=== PATIENT | female | born 1965 | race Caucasian/White ===

== ENCOUNTER 2016-10-13 22:11 | Observation (INO) | payer BC ==
[~2016-10-13] VITALS: Ht 157.5 cm; Wt 58.8 kg
[~2016-10-13 22:11] MED LIST: AMLO2.5T PO; AMLO5TAB2 PO; ATEN25TA PO; BENZ100C4 PO; BUSP10TA PO; BUSP15TA PO; BUTA-5 PO; CHLO25CA9 PO; FLUD0.1T PO; FLUO20CA8 PO; FLUO40CA2 PO; FLUO40CA9 PO; FOLI-17 PO; GUAI10LI PO; LORA-445 PO; METO1TAB6 PO; MULT-484 PO; ONDA4TAB7 PO; QUET100T4 PO; QUET25TA PO; QUET50TA5 PO; THIA100T6 PO; THYR60TA PO; THYR90TA PO; TRAM50TA2 PO
[2016-10-13 23:18] LABS: ASPARTATE AMINO TRANSFERASE 70 U/L (15-37); BLOOD UREA NITROGEN 26 mg/dL (7-18)
[2016-10-13 23:25] LABS: ACETAMINOPHEN < 2 mcg/mL (10-30)
[2016-10-14] MEDS ORDERED: ONDANSETRON ODT 4 MG ONE (00:26)
[2016-10-14] MEDS ORDERED: ONDANSETRON ODT 8 MG PO ONE (00:30)
[2016-10-14] MEDS ORDERED: LORazepam 1MG TABLET ONE (02:15)
[2016-10-14] MEDS ORDERED: LORazepam 1MG TABLET PO ONE (02:30)
[2016-10-14] MEDS ORDERED: ZIPRASIDONE 20 MG INJ IM PRN (03:30)
[2016-10-14] MEDS ORDERED: ACETAMINOPHEN 325 MG TABLET PO PRN (03:30)
[2016-10-14] MEDS ORDERED: ONDANSETRON ODT 4 MG PO PRN (03:30)
[2016-10-14] MEDS ORDERED: LORazepam 1MG TABLET PO PRN (03:30)
[2016-10-14] MEDS ORDERED: HALOPERIDOL 5 MG TABLET PO PRN (03:30)
[2016-10-14 03:47] LABS: DAU SCREEN DISCLAIMER
[2016-10-14 03:53] LABS: PATH.CAST-FLAG NOT PRESENT; SPERM-FLAG NOT PRESENT; SRC-FLAG NOT PRESENT; XTAL-FLAG NOT PRESENT; YLC-FLAG NOT PRESENT
[2016-10-14 04:12] VITALS: BP 148/83
[2016-10-14] MEDS ORDERED: DIPHENHYDRAMINE 25 MG CAPSULE PO PRN (08:00)
[2016-10-14 08:03] VITALS: BP 116/72
[2016-10-14] MEDS ORDERED: MULTIVITAMINS/MINERALS TABLET PO SCH (09:00)
[2016-10-14] MEDS ORDERED: FOLIC ACID 1 MG TABLET PO SCH (09:00)
[2016-10-14] MEDS ORDERED: BUSPIRONE 10 MG TABLET PO SCH (09:00)
[2016-10-14] MEDS ORDERED: THIAMINE 100MG TABLET PO SCH (09:00)
[2016-10-14] MEDS ORDERED: FLUOXETINE 20 MG CAPSULE PO SCH (09:00)
[2016-10-14] MEDS ORDERED: QUETIAPINE 25MG TABLET PO SCH (21:00)
[2016-10-15] MEDS ORDERED: FLUOXETINE 20 MG CAPSULE PO SCH (09:00)
== END 2016-10-14 15:17 ==
LOC: ED 10-14 02:42 → EDIP 10-14 03:15 → 3E 10-14 04:10
PROVIDERS: ADMIT Hospitalist; ATTEND Hospitalist
DX: R45.851 Suicidal ideations (principal); F10.10 Alcohol abuse, uncomplicated; I10 Essential (primary) hypertension; F32.9 Major depressive disorder, single episode, unspecified; F41.9 Anxiety disorder, unspecified; E03.9 Hypothyroidism, unspecified; Z91.14 Patient's other noncompliance with medication regimen
CPT/HCPCS: 36415; 80053; 80307; 80329; 81001; 84439; 84443; 85025; 99285; G0378; Q0162; Q0163; G0480

== ENCOUNTER 2017-01-25 08:53 | Day surgery (SDC) | payer BC ==
[2017-01-22 14:47] LABS: ASPARTATE AMINO TRANSFERASE 13 U/L (15-37); BLOOD UREA NITROGEN 10 mg/dL (7-18)
[~2017-01-25] VITALS: Ht 157.5 cm; Wt 58.7 kg
[~2017-01-25 08:53] MED LIST changes: +BENZ100C17 PO; -BENZ100C4 PO; +BUPIVACAINE/PF 0.5% ONE; +BUSP5TAB2 PO; +GABA300C10 PO; +HYDR12.58 PO; +METO25TA35 PO; +QUET25TA5 PO
[2017-01-25 09:19] VITALS: BP 134/87
[2017-01-25] MEDS ORDERED: LACTATED RINGERS 1,000 ML IV SCH (09:32)
[2017-01-25] MEDS ORDERED: MIDAZOLAM 1 MG/ML, 2ML ONE (10:14)
[2017-01-25] MEDS ORDERED: FENTANYL PF 100 MCG/2ML ONE ×2 (10:14→12:35)
[2017-01-25] MEDS ORDERED: ROCURONIUM 10 MG/ML ONE (10:46)
[2017-01-25] MEDS ORDERED: EPHEDRINE 50 MG/ML, 1ML ONE (10:46)
[2017-01-25] MEDS ORDERED: PROPOFOL 10 MG/ML, 20ML ONE (10:46)
[2017-01-25] MEDS ORDERED: DEXAMETHASONE 4 MG/ML, 5ML ONE (10:46)
[2017-01-25] MEDS ORDERED: SUCCINYLCHOLINE 20 MG/ML, 10ML ONE (10:46)
[2017-01-25] MEDS ORDERED: CEFAZOLIN 1,000 MG ONE (10:46)
[2017-01-25] MEDS ORDERED: FENTANYL PF 100 MCG/2ML IV PRN (11:30)
[2017-01-25] MEDS ORDERED: LABETALOL 5MG/ML, 20ML IV PRN (11:30)
[2017-01-25] MEDS ORDERED: hydrALAzine 20 MG/ML, 1ML IV PRN (11:30)
[2017-01-25] MEDS ORDERED: ACETAMINOPHEN 325 MG TABLET PO PRN (11:30)
[2017-01-25] MEDS ORDERED: HYDROmorphone 1 MG/ML, 1ML IV PRN (11:30)
[2017-01-25] MEDS ORDERED: ONDANSETRON 2MG/ML, 2ML IVPush PRN (11:30)
[2017-01-25] MEDS ORDERED: OXYcodone 5 MG/5 ML ORAL.SOL UDC PO PRN (11:30)
[2017-01-25] MEDS ORDERED: MEPERIDINE/PF 25MG/0.5ML IVPush PRN (11:30)
[2017-01-25] MEDS ORDERED: MIDAZOLAM 1 MG/ML, 2ML IV PRN (11:30)
[2017-01-25] MEDS ORDERED: ALBUTEROL/IPRATROPIUM 2.5MG/0.5MG, 3 ML NPPB PRN (11:30)
[2017-01-25] MEDS ORDERED: OXYcodone 5 MG/5 ML ORAL.SOL UDC ONE (13:40)
[2017-01-25] MEDS ORDERED: ONDANSETRON 2MG/ML, 2ML ONE (13:40)
[2017-01-25] MEDS ORDERED: ACETAMINOPHEN 650 MG/20.3 ML UDC ONE (13:40)
== END 2017-01-25 16:45 ==
LOC: OUT 08:53
PROVIDERS: ATTEND Orthopaedic Surgery
DX: S82.831K Other fracture of upper and lower end of right fibula, subsequent encounter for closed fracture with nonunion (principal); M24.671 Ankylosis, right ankle; M25.371 Other instability, right ankle; M77.41 Metatarsalgia, right foot; J45.909 Unspecified asthma, uncomplicated; X58.XXXD Exposure to other specified factors, subsequent encounter; Z88.8 Allergy status to other drugs, medicaments and biological substances; Z90.49 Acquired absence of other specified parts of digestive tract; Z98.890 Other specified postprocedural states; Z86.39 Personal history of other endocrine, nutritional and metabolic disease
CPT/HCPCS: 27726; 27792; 28308; 29898; 36415; 73600; 76000; 80053; 81003; 87086; C1713; J0330; J0690; J1100; J2250; J2405; J2704; J3010; J3490; J7120

== ENCOUNTER 2017-02-12 17:09 | Emergency (ER) | payer BC ==
[~2017-02-12] VITALS: Ht 160 cm; Wt 57.0 kg
[~2017-02-12 17:09] MED LIST changes: -BUPIVACAINE/PF 0.5% ONE
[2017-02-12 17:42] LABS: HEMATOCRIT 37.3 % (34.6-47.8); HEMOGLOBIN 12.5 g/dL (11.7-16.4); WHITE BLOOD COUNT 4.6 x10^3/uL (3.4-10)
[2017-02-12 17:55] LABS: BLOOD UREA NITROGEN 21 mg/dL (7-18)
[2017-02-12 17:56] LABS: ACETAMINOPHEN < 2 mcg/mL (10-30)
[2017-02-12 21:39] VITALS: BP 96/71
== END 2017-02-12 21:48 | disposition home or self-care (01) ==
LOC: ED 20:48
DX: F41.1 Generalized anxiety disorder (principal); F10.120 Alcohol abuse with intoxication, uncomplicated; M79.671 Pain in right foot; Z98.890 Other specified postprocedural states; Z00.00 Encounter for general adult medical examination without abnormal findings
CPT/HCPCS: 36415; 80048; 80307; 80329; 82040; 85025; 99284; G0480

== ENCOUNTER 2017-02-14 17:58 | Inpatient (IN) | payer BC ==
[~2017-02-14] VITALS: Ht 157.5 cm; Wt 75.8 kg
[2017-02-14 18:17] LABS: HEMATOCRIT 39.3 % (34.6-47.8); HEMOGLOBIN 12.9 g/dL (11.7-16.4); WHITE BLOOD COUNT 5.8 x10^3/uL (3.4-10)
[2017-02-14] MEDS ORDERED: OXYC-302 PO (18:22)
[2017-02-14 18:26] LABS: BLOOD UREA NITROGEN 25 mg/dL (7-18)
[2017-02-14 18:29] LABS: ACETAMINOPHEN 140 mcg/mL (10-30); ASPARTATE AMINO TRANSFERASE 149 U/L (15-37)
[2017-02-14] MEDS ORDERED: DEXTROSE 5% IV ONE ×3 (18:30→20:00)
[2017-02-14] MEDS ORDERED: ACETYLCYSTEINE IV ONE ×3 (18:30→20:00)
[2017-02-14] MEDS ORDERED: NALOXONE 0.4 MG/ML, 1ML IVPush PRN (18:30)
[2017-02-14] MEDS ORDERED: SODIUM CHLORIDE 0.9% 1,000ML IVBOLUS ONE ×2 (18:30→20:30)
[2017-02-14] MEDS: PLEASE ENTER HEIGHT AND WEIGHT MC SCH ×2 (18:30→19:56)
[2017-02-14] MEDS ORDERED: NALOXONE 0.4 MG/ML, 1ML ONE (18:30)
[2017-02-14] MEDS ORDERED: ONDANSETRON 2MG/ML, 2ML ONE (18:39)
[2017-02-14 19:04] LABS: DAU SCREEN DISCLAIMER
[2017-02-14] MEDS ORDERED: SODIUM CHLORIDE 0.9% 1,000 ML IV SCH (20:33)
[2017-02-14] MEDS ORDERED: hydrALAzine 20 MG/ML, 1ML IVPush PRN (21:00)
[2017-02-14] MEDS ORDERED: ENOXAPARIN 40 MG/0.4 ML SQ SCH (21:00)
[2017-02-14] MEDS ORDERED: ATENOLOL 25 MG TABLET PO PRN (21:00)
[2017-02-14 21:54] VITALS: BP 120/85
[2017-02-14] MEDS: POTASSIUM CHLORIDE 20 MEQ, MAGNESIUM SULFATE 2 GM, THIAMINE 100 MG, MVI ADULT 10 ML, FO... IV SCH (22:31)
[2017-02-15] MEDS: DEXTROSE 5% IV SCH ×2 (00:12→17:51)
[2017-02-15] MEDS: ACETYLCYSTEINE IV SCH ×2 (00:12→17:51)
[2017-02-15 04:00] VITALS: BP 139/94
[2017-02-15 04:33] LABS: HEMATOCRIT 31.9 % (34.6-47.8); HEMOGLOBIN 10.7 g/dL (11.7-16.4); WHITE BLOOD COUNT 7.2 x10^3/uL (3.4-10)
[2017-02-15 06:05] LABS: BLOOD UREA NITROGEN 15 mg/dL (7-18)
[2017-02-15 06:11] LABS: ACETAMINOPHEN 42 mcg/mL (10-30); ASPARTATE AMINO TRANSFERASE 99 U/L (15-37)
[2017-02-15] MEDS: THYROID 30 MG TABLET PO SCH (10:36)
[2017-02-15] MEDS: PANTOPRAZOLE 40 MG IV IVPush SCH (10:36)
[2017-02-15 20:00] VITALS: BP 148/89
[2017-02-15] MEDS: LORazepam 2 MG/ML, 1ML IVPush PRN (22:01)
[2017-02-15] MEDS: ENOXAPARIN 40 MG/0.4 ML SQ SCH (22:02)
[2017-02-15] MEDS: THIAMINE 100MG TABLET PO SCH (22:02)
[2017-02-15] MEDS: POTASSIUM CHLORIDE 20 MEQ, MAGNESIUM SULFATE 2 GM, THIAMINE 100 MG, MVI ADULT 10 ML, FO... IV SCH (22:02)
[2017-02-16 05:02] LABS: HEMATOCRIT 35.8 % (34.6-47.8); HEMOGLOBIN 12.1 g/dL (11.7-16.4); WHITE BLOOD COUNT 7.5 x10^3/uL (3.4-10)
[2017-02-16 05:25] LABS: ASPARTATE AMINO TRANSFERASE 61 U/L (15-37); BLOOD UREA NITROGEN 7 mg/dL (7-18)
[2017-02-16 06:37] VITALS: BP 143/95
[2017-02-16] MEDS: LORazepam 2 MG/ML, 1ML IVPush PRN ×2 (08:45→20:36)
[2017-02-16] MEDS: FOLIC ACID 1 MG TABLET PO SCH (08:45)
[2017-02-16] MEDS: THIAMINE 100MG TABLET PO SCH (08:45)
[2017-02-16] MEDS: ONDANSETRON 2MG/ML, 2ML IVPush PRN ×2 (08:45→20:36)
[2017-02-16] MEDS: PANTOPRAZOLE 40 MG IV IVPush SCH (08:45)
[2017-02-16] MEDS: THYROID 30 MG TABLET PO SCH (08:46)
[2017-02-16] MEDS: DEXTROSE 5% IV SCH (09:22)
[2017-02-16] MEDS: ACETYLCYSTEINE IV SCH (09:22)
[2017-02-16] MEDS ORDERED: SODIUM PHOSPHATE 20 MMOL in SODIUM CHLORIDE 0.9% 500 ML IV ONE (12:00)
[2017-02-16] MEDS ORDERED: POTASSIUM CHLORIDE 40 MEQ in SODIUM CHLORIDE 0.9% 500 ML IV ONE (12:00)
[2017-02-16 15:24] VITALS: BP 138/88
[2017-02-16] MEDS: BUSPIRONE 5 MG TABLET PO SCH (20:38)
[2017-02-16] MEDS: ENOXAPARIN 40 MG/0.4 ML SQ SCH (20:39)
[2017-02-16 20:44] VITALS: BP 157/88
[2017-02-16] MEDS ORDERED: QUETIAPINE 25MG TABLET PO SCH (21:00)
[2017-02-16] MEDS: POTASSIUM CHLORIDE 20 MEQ, MAGNESIUM SULFATE 2 GM, THIAMINE 100 MG, MVI ADULT 10 ML, FO... IV SCH (22:51)
[2017-02-17 01:50] VITALS: BP 132/85
[2017-02-17] MEDS ORDERED: PNEUMOCOCCAL 23 VACCINE IM-VACC ONE (04:30)
[2017-02-17] MEDS ORDERED: FLU VACC QS2016-17 (36MOS+)UP/PF 0.5 ML IM-VACC ONE (04:30)
[2017-02-17 05:14] LABS: HEMATOCRIT 33.9 % (34.6-47.8); HEMOGLOBIN 11.4 g/dL (11.7-16.4); WHITE BLOOD COUNT 6.7 x10^3/uL (3.4-10)
[2017-02-17 05:29] LABS: BLOOD UREA NITROGEN 9 mg/dL (7-18)
[2017-02-17] MEDS: BUSPIRONE 5 MG TABLET PO SCH ×2 (08:52→22:32)
[2017-02-17] MEDS: THIAMINE 100MG TABLET PO SCH (08:52)
[2017-02-17] MEDS: FOLIC ACID 1 MG TABLET PO SCH (08:52)
[2017-02-17] MEDS: FLUOXETINE 20 MG CAPSULE PO SCH (08:53)
[2017-02-17] MEDS: PANTOPRAZOLE 40 MG IV IVPush SCH (08:53)
[2017-02-17] MEDS: THYROID 30 MG TABLET PO SCH (08:53)
[2017-02-17 09:15] VITALS: BP 133/86
[2017-02-17] MEDS: LORazepam 2 MG/ML, 1ML IVPush PRN ×2 (11:55→19:42)
[2017-02-17 14:41] VITALS: BP 137/88
[2017-02-17] MEDS: ONDANSETRON 2MG/ML, 2ML IVPush PRN (19:43)
[2017-02-17 20:00] VITALS: BP 118/75
[2017-02-17] MEDS: HYDROmorphone 2 MG/ML, 1ML IVPush PRN ×2 (20:18→23:51)
[2017-02-17] MEDS: QUETIAPINE 25MG TABLET PO SCH (22:32)
[2017-02-17] MEDS: POTASSIUM CHLORIDE 20 MEQ, MAGNESIUM SULFATE 2 GM, THIAMINE 100 MG, MVI ADULT 10 ML, FO... IV SCH (22:32)
[2017-02-17] MEDS: ENOXAPARIN 40 MG/0.4 ML SQ SCH (22:32)
[2017-02-18] MEDS: IBUPROFEN 200 MG TABLET PO PRN ×2 (01:50→14:42)
[2017-02-18 02:10] VITALS: BP 124/82
[2017-02-18 05:28] LABS: HEMATOCRIT 35.3 % (34.6-47.8); HEMOGLOBIN 11.8 g/dL (11.7-16.4); WHITE BLOOD COUNT 6.7 x10^3/uL (3.4-10)
[2017-02-18 05:50] LABS: BLOOD UREA NITROGEN 11 mg/dL (7-18)
[2017-02-18] MEDS: HYDROmorphone 2 MG/ML, 1ML IVPush PRN ×2 (05:51→22:12)
[2017-02-18] MEDS: FOLIC ACID 1 MG TABLET PO SCH (08:39)
[2017-02-18] MEDS: THIAMINE 100MG TABLET PO SCH (08:39)
[2017-02-18] MEDS: THYROID 30 MG TABLET PO SCH (08:39)
[2017-02-18] MEDS: PANTOPRAZOLE 40 MG IV IVPush SCH (08:39)
[2017-02-18] MEDS: BUSPIRONE 5 MG TABLET PO SCH ×2 (08:39→22:11)
[2017-02-18] MEDS: FLUOXETINE 20 MG CAPSULE PO SCH (08:43)
[2017-02-18 08:55] VITALS: BP 128/90
[2017-02-18] MEDS: LORazepam 2 MG/ML, 1ML IVPush PRN ×2 (10:32→18:35)
[2017-02-18] MEDS: ONDANSETRON 2MG/ML, 2ML IVPush PRN ×2 (10:32→18:35)
[2017-02-18 14:18] VITALS: BP 148/83
[2017-02-18 19:11] VITALS: BP 139/80
[2017-02-18] MEDS: ENOXAPARIN 40 MG/0.4 ML SQ SCH (22:11)
[2017-02-18] MEDS: QUETIAPINE 25MG TABLET PO SCH (22:12)
[2017-02-18] MEDS: POTASSIUM CHLORIDE 20 MEQ, MAGNESIUM SULFATE 2 GM, THIAMINE 100 MG, MVI ADULT 10 ML, FO... IV SCH (22:50)
[2017-02-19 01:18] VITALS: BP 127/76
[2017-02-19 05:18] LABS: BLOOD UREA NITROGEN 8 mg/dL (7-18)
[2017-02-19 05:21] LABS: ASPARTATE AMINO TRANSFERASE 34 U/L (15-37)
[2017-02-19 08:10] VITALS: BP 155/88
[2017-02-19] MEDS: PANTOPROZOLE 40MG TABLET PO SCH (08:46)
[2017-02-19] MEDS: THYROID 30 MG TABLET PO SCH (08:47)
[2017-02-19] MEDS: FOLIC ACID 1 MG TABLET PO SCH (08:47)
[2017-02-19] MEDS: BUSPIRONE 5 MG TABLET PO SCH ×2 (08:47→20:49)
[2017-02-19] MEDS: THIAMINE 100MG TABLET PO SCH (08:48)
[2017-02-19] MEDS: FLUOXETINE 20 MG CAPSULE PO SCH (08:48)
[2017-02-19] MEDS: HYDROmorphone 2 MG/ML, 1ML IVPush PRN ×2 (09:00→14:38)
[2017-02-19 14:20] VITALS: BP 136/88
[2017-02-19] MEDS ORDERED: OXYcodone/APAP 5/325MG TABLET PO PRN (18:00)
[2017-02-19 19:40] VITALS: BP 163/101
[2017-02-19] MEDS: POTASSIUM CHLORIDE 20 MEQ, MAGNESIUM SULFATE 2 GM, THIAMINE 100 MG, MVI ADULT 10 ML, FO... IV SCH (20:30)
[2017-02-19] MEDS: LORazepam 1MG TABLET PO PRN ×2 (20:49→23:12)
[2017-02-19] MEDS: QUETIAPINE 25MG TABLET PO SCH (20:50)
[2017-02-19] MEDS: ENOXAPARIN 40 MG/0.4 ML SQ SCH (21:39)
[2017-02-19] MEDS: IBUPROFEN 200 MG TABLET PO PRN (21:44)
[2017-02-20 00:35] VITALS: BP 109/71
[2017-02-20] MEDS: LORazepam 1MG TABLET PO PRN ×2 (01:56→04:24)
[2017-02-20 05:46] LABS: BLOOD UREA NITROGEN 9 mg/dL (7-18)
[2017-02-20 08:00] VITALS: BP 149/99
[2017-02-20] MEDS: THIAMINE 100MG TABLET PO SCH (08:51)
[2017-02-20] MEDS: PANTOPROZOLE 40MG TABLET PO SCH (08:52)
[2017-02-20] MEDS: BUSPIRONE 5 MG TABLET PO SCH (08:52)
[2017-02-20] MEDS: THYROID 30 MG TABLET PO SCH (08:52)
[2017-02-20] MEDS: FLUOXETINE 20 MG CAPSULE PO SCH (08:52)
[2017-02-20] MEDS: FOLIC ACID 1 MG TABLET PO SCH (08:53)
== END 2017-02-20 14:43 | DRG 917 ==
LOC: ED 20:32 → EDIP 20:33 → ED 20:40 → CCU 21:38 → 3NE 02-15 14:31 → 3E 02-19 15:42
PROVIDERS: ADMIT Internal Medicine; ATTEND Internal Medicine
DX: T40.2X2A Poisoning by other opioids, intentional self-harm, initial encounter (principal); J96.01 Acute respiratory failure with hypoxia; F10.988 Alcohol use, unspecified with other alcohol-induced disorder; T39.1X2A Poisoning by 4-Aminophenol derivatives, intentional self-harm, initial encounter; E03.9 Hypothyroidism, unspecified; E83.39 Other disorders of phosphorus metabolism; I10 Essential (primary) hypertension; E87.6 Hypokalemia; F41.1 Generalized anxiety disorder; F32.9 Major depressive disorder, single episode, unspecified; K70.9 Alcoholic liver disease, unspecified; K75.9 Inflammatory liver disease, unspecified; Z79.899 Other long term (current) drug therapy; Z91.5 Personal history of self-harm; Z88.8 Allergy status to other drugs, medicaments and biological substances; Y92.098 Other place in other non-institutional residence as the place of occurrence of the external cause; Z23 Encounter for immunization
CPT/HCPCS: 36415; 71010; 80048; 80053; 80307; 80329; 82140; 83735; 84100; 85025; 85610; 85730; 87081; 90686; 90732; 93005; 96365; 96372; 96375; J0132; J1170; J1650; J2310; J2405; J3411; J3475; J3480; J7042; J7060; J7070; C9113; G0479; G0480; J2060; J7030; J7040